=== PATIENT | female | born 1990 | race Caucasian/White ===

== ENCOUNTER 2021-06-20 04:04 | Emergency (ER) | payer OTHER | END 2021-06-20 05:33 | disposition home or self-care (01) | LOC: ER1 04:04 | DX: S52.611A Displaced fracture of right ulna styloid process, initial encounter for closed fracture (principal); F17.200 Nicotine dependence, unspecified, uncomplicated; W18.30XA Fall on same level, unspecified, initial encounter; Y92.009 Unspecified place in unspecified non-institutional (private) residence as the place of occurrence of the external cause | CPT/HCPCS: 73090; 73130; 99283 ==

== ENCOUNTER 2021-10-16 23:23 | Emergency (ER) | payer OTHER ==
[2021-10-16 23:58] LABS: HEMOGLOBIN 12.2 gm/dl (12.3-15.3); RED BLOOD COUNT 3.94 M/UL (4.00-5.10); WHITE BLOOD COUNT 10.5 K/UL (4.5-11.0)
[2021-10-17 00:16] LABS: BUN/CREATININE RATIO 12 (0-10)
[2021-10-17] MEDS ORDERED: ZOFRAN ODT 4 MG4 MG SL (03:39)
[2021-10-17] MEDS ORDERED: PREDNISONE 20 M20 MG PO (03:49)
== END 2021-10-17 03:54 | disposition home or self-care (01) ==
LOC: ER1 23:23
PROVIDERS: Student in an Organized Health Care Education/Training Program
DX: R11.2 Nausea with vomiting, unspecified (principal); J44.1 Chronic obstructive pulmonary disease with (acute) exacerbation; F17.210 Nicotine dependence, cigarettes, uncomplicated; Z90.49 Acquired absence of other specified parts of digestive tract; Z90.89 Acquired absence of other organs; Z20.822 Contact with and (suspected) exposure to COVID-19
CPT/HCPCS: 71045; 80053; 85025; 94664; 99284; U0002